=== PATIENT | female | born 1965 | race Caucasian/White ===

== ENCOUNTER 2016-11-10 11:11 | Day surgery (SDC) | payer OTHER ==
[~2016-11-10] VITALS: Ht 160 cm; Wt 56.0 kg
[~2016-11-10 11:11] MED LIST: 0.9% Sodium Chloride 1,000 ML IV SCH; DOXY25TA46 PO; MULT-666 PO; PANT40TA3 PO; PARO10TA2 PO; PRX40T PO; Sodium Chloride LOK Flush 10 mL Syringe IV PRN; TRAZ-118 PO; fentaNYL-PF 50 mCg/mL 2 mL Inj IVPUSH PRN
[2016-11-10 11:54] VITALS: BP 99/54; PULSE 74; RESP 16; O2SAT 99
[2016-11-10] MEDS ORDERED: ACET-171 PO (11:57)
--- NOTE | 2016-11-10 12:55 | PCM.ENDEGD ---
EGD Date of Service: Nov 10, 2016 Physician Ronald Clifford MD Pre Procedure Diagnosis: Abdominal pain Post Procedure Dx & Findings: Gastritis Procedure Esophagogastroduodenoscopy PROCEDURE IN DETAIL: After proper sedation, Olympus video endoscope was inserted into patient's mouth and esophagus was successfully intubated. Scope introduced esophagus. Esophagus showed normal shiny whitish mucosa consistent with squamous cell component. Z line was intact at 36 cm from the incisors. Scope further advanced to the stomach. Stomach showed normal shiny mucosa with normal appearing rugae folds without any ulcer mass erosion. Cardia fundus body antrum pylorus were all visualized. However in the antrum, there are several redness irritation consistent with gastritis as well as superficial erosions. Biopsies obtained. Retroflexion was done. Stomach was easily inflated and deflatable using air. Scope further events to the distal duodenum. Duodenum revealed normal villous structures with normal appearing folds without any mass ulcer erosion. Biopsy 5 obtained randomly in the duodenum for celiac disease Impression Gastritis with erosions Recommendation Continue PPI Avoid NSAIDs Presedation Assessment Risks and Benefits Informed consent was obtained from the patient after all risks and benefits including but not limited to drug reaction, infection, pain, bleeding, perforation, as well as alternatives were discussed. Patient monitoring Continuous pulse oximetry, cardiac monitoring, blood pressure monitoring, IV access, and oxygen at 2L per nasal cannula. Periprocedural Fentanyl: Fentanyl 75mcg Incrementally Midazolam: Midazolam 5mg Incrementally Complications There were no periprocedural complications identified. Post Procedure Plan Post Procedure Recommendations 1. Restrict activities today. 2. Resume normal activities in the morning. 3. Resume medications. 4. GERD behavioral modification: - Avoid fatty, acidic, spicy, large meals - Do not lie down after meals - Do not eat or drink anything for at least 2 1/2 hours before going to bed at night - Discontinue tobacco and alcohol - Decrease or avoid caffeine - Avoid chocolate and mints - Decrease weight - Avoid aspirin and non steroidal anti-inflammatory agents (NSAID) such as Aleve, Advil, Mobic, Naproxen, Ibuprofen, etc 5. Add proton pump inhibitor. Take 30 minutes before 1st meal of the day. 6. Patient informed of normal post procedure side effects as bloating, drowsiness, blood streaking in the stool 7. If gastric biopsy reveal H.pylori, continue with appropriate treatment 8. If small bowel biopsy reveals celiac, continue with appropriate treatment 9. Please don't hesitate to call me with any questions Ronald Clifford MD Nov 10, 2016 12:55
[2016-11-10 13:00] VITALS: BP 97/60; PULSE 56; RESP 12; O2SAT 96
[2016-11-10 13:12] VITALS: BP 100/62; PULSE 64; RESP 12; O2SAT 98
[2016-11-10 13:14] VITALS: BP 97/62; PULSE 67; RESP 12; O2SAT 98
--- NOTE | 2016-11-14 14:30 | PATH ---
SURGICAL PATHOLOGY Attending Physician:Ronald Clifford M.D. CASE STATUS: Signed Out PATIENT NAME: JOAQUIN HIGGINBOTHAM PID: [id number] : 1965 DATE COLLECTED:11/10/2016 19:49 SPECIMEN: 1: Gastric, Biopsy 2: Duodenum, Biopsy CLINICAL HISTORY: 1). GASTRIC EROSION BIOPSY 2). DUODENUM BIOPSY FINAL DIAGNOSIS: 1.GASTRIC EROSION, BIOPSY: MILD EROSIVE CHRONIC ACTIVE GASTRITIS. Negative for Helicobacter organisms. Negative for intestinal metaplasia. No evidence of dysplasia or malignancy. 2.DUODENUM, BIOPSY: MILD BLUNTING OF THE VILLOUS ARCHITECTURE, ASSOCIATED WITH PATCHY LYMPHOCYTOSIS IN THE SUPERFICIAL EPITHELIUM (PLEASE SEE COMMENT). No evidence of dysplasia or malignancy. ICD10 code K29.70 NOTE: The findings raise the possibility of celiac disease. Additional testing and clinical correlation are suggested for a definitive diagnosis. GROSS DESCRIPTION: The specimen is received in two formalin filled containers labeled with the patient's name. 1). The specimen is sublabeled "gastric erosion" and consists of 4 portions of tissue which aggregate to 0.3 x 0.3 x 0.2 CM. The specimen is entirely submitted in cassette 1A. 2). The specimen is sublabeled "duodenum" and consists of 4 portions of tissue which aggregate to 0.3 x 0.3 x 0.3 CM. The specimen is entirely submitted in cassette 2A. 11/10/2016 [facility] MICRO DESCRIPTION: A. The lamina propria of the gastric antrum is expanded by small numbers of acute and chronic inflammatory cells. Additionally, a mucosal erosion is identified. A Genta stain for Helicobacter organisms is done because of the acute inflammation is negative. This test was developed and its performance characteristics determined by [facility]. It has not been cleared or approved by the U. S. Food and Drug Administration. The FDA has determined that such clearance or approval is not necessary. This test is used for clinical purposes. It should not be regarded as investigational or for research. ICD-9 CODES: CPT CODES: 1: 96827, 56516 2: 70398 Electronically Signed Out Abbe Hopper MD [facility] Pathology [facility] [address], [place] [address] Technical component performed at [facility], [facility] [address], [place], [address]
[2017-01-12] MEDS ORDERED: MULT-1018 PO (14:56)
== END 2016-11-10 23:59 | disposition home or self-care (01) ==
LOC: END 11:11
PROVIDERS: ATTEND Internal Medicine
DX: K29.50 Unspecified chronic gastritis without bleeding (principal); R10.11 Right upper quadrant pain; R11.0 Nausea; K21.9 Gastro-esophageal reflux disease without esophagitis; K80.20 Calculus of gallbladder without cholecystitis without obstruction; K22.2 Esophageal obstruction; K31.9 Disease of stomach and duodenum, unspecified; F41.9 Anxiety disorder, unspecified; F32.9 Major depressive disorder, single episode, unspecified; K76.0 Fatty (change of) liver, not elsewhere classified; K27.9 Peptic ulcer, site unspecified, unspecified as acute or chronic, without hemorrhage or perforation; K44.9 Diaphragmatic hernia without obstruction or gangrene; Q76.49 Other congenital malformations of spine, not associated with scoliosis
CPT/HCPCS: 43239; 99152; J7030

== ENCOUNTER 2017-01-17 10:35 | Day surgery (SDC) | payer OTHER ==
[2017-01-17] VITALS (13 sets, daily range): BP systolic 90–112; BP diastolic 48–67; PULSE 54–82; RESP 14–23; O2SAT 93–100
[~2017-01-17] VITALS: Ht 160 cm; Wt 59.1 kg
[~2017-01-17 10:35] MED LIST changes: -0.9% Sodium Chloride 1,000 ML IV SCH; +CeFAZolin 2 Gm/50 mL D5W IV Premix IV ONE; -DOXY25TA46 PO; +Lactated Ringer's 1,000 ML IV SCH; +MULT-1018 PO; -MULT-666 PO; -PRX40T PO; -Sodium Chloride LOK Flush 10 mL Syringe IV PRN; -fentaNYL-PF 50 mCg/mL 2 mL Inj IVPUSH PRN
[2017-01-17] MEDS ORDERED: fentaNYL-PF 50 mCg/mL 2 mL Inj ONE (10:36)
[2017-01-17] MEDS ORDERED: Neostigmine 1 mg/mL 10 mL Inj ONE (10:36)
[2017-01-17] MEDS ORDERED: Dexamethasone 4 mg/mL Inj ONE (10:36)
[2017-01-17] MEDS ORDERED: Phenylephrine/NS 100 mCg/mL 10 mL Syringe IVPUSH ONE (10:36)
[2017-01-17] MEDS ORDERED: Glycopyrrolate 0.2 MG/ML 1mL Inj ONE (10:36)
[2017-01-17] MEDS ORDERED: Propofol 10 mg/mL 20 mL Inj ONE (10:36)
[2017-01-17] MEDS ORDERED: Ondansetron 2 mg/mL 2 mL Inj ONE (10:36)
[2017-01-17] MEDS ORDERED: CeFAZolin 2 Gm/50 mL D5W Duplex Bag IV ONE (11:05)
[2017-01-17] MEDS ORDERED: Lactated Ringer's 1,000 ML IV ONE ×2 (12:34→14:00)
[2017-01-17] MEDS ORDERED: Lactated Ringer's 1,000 ML IV SCH (13:00)
[2017-01-17] MEDS ORDERED: Ondansetron 2 mg/mL 2 mL Inj IVPUSH PRN (13:00)
[2017-01-17] MEDS ORDERED: EPHEDrine Sulfate 50 mg/mL Inj IVPUSH PRN (13:00)
[2017-01-17] MEDS ORDERED: Lactated Ringer's 500 ML IV PRN (13:00)
[2017-01-17] MEDS ORDERED: HYDROmorphone 1 mg/mL Inj IVPUSH PRN (13:00)
[2017-01-17] MEDS ORDERED: MetoCLOpramide 5 mg/mL 2 mL Inj IVPUSH PRN (13:00)
[2017-01-17] MEDS ORDERED: fentaNYL-PF 50 mCg/mL 2 mL Inj IVPUSH PRN (13:00)
[2017-01-17] MEDS ORDERED: Atropine 0.4 mg/mL Inj IVPUSH PRN (13:00)
[2017-01-17] MEDS ORDERED: Labetalol 5 mg/mL 4 mL Inj IV PRN (13:00)
[2017-01-17] MEDS ORDERED: Phenylephrine 10,000 mCg/mL Inj IVPUSH PRN (13:00)
[2017-01-17] MEDS ORDERED: Bupivacaine 0.5%/EPI 50 mL Inj INJ ONE (13:02)
[2017-01-17] MEDS ORDERED: oxyCODONE-Acetamin 5-325 mg Tablet PO PRN (14:25)
--- NOTE | 2017-01-17 14:27 | PCM.SURGOP ---
Surgical Operative Report Date of Service: Jan 17, 2017 Pre Operative Diagnosis Biliary colic Post Operative Diagnosis Chronic cholecystitis Procedure: Laparoscopic cholecystectomy Surgeon and Doctor Osteopathic: Surgeon: Ivonne Sales MD Assistants: Dinesh Cardenas PA-C; Halle Fallon MS4 A ophthalmic surgical assistant was required for retraction and driving the camera. Indication for Procedure This is a 51-year-old woman who presented with postprandial nausea associated with right upper quadrant abdominal pain and underwent evaluation including upper endoscopy which showed mild gastritis, and abdominal ultrasound which revealed cholelithiasis. She was referred to my office by the gastroenterology department, and was booked for laparoscopic cholecystectomy as an outpatient. Findings: 1. Moderate inflammation of the gallbladder consistent with chronic cholecystitis. 2. Intrahepatic gallbladder. Procedure Details The patient was brought to the operating room and placed in supine position. General endotracheal anesthesia was smoothly induced. Antibiotics were infused. A warming blanket and SCDs were placed. A foot board was placed. The operative field was prepped and draped in sterile fashion. A pause was performed to confirm the correct patient, procedure, site, and side. A transverse 10 mm incision was made just below the umbilicus. The abdomen was entered under direct vision using a Gavin port. Three additional 5 mm ports were placed in the epigastrium and right upper quadrant. The gallbladder was identified and lifted cephalad. Dissection then proceeded to identify the cystic duct, cystic artery, and to expose the bottom one third of the cystic plate. The cystic artery was tiny and was divided close to the gallbladder with electrocautery. Once there was a single structure entering the gallbladder coming off of the infundibulum, consistent with the cystic duct, it was clipped on the gallbladder and patient side and divided with scissors. The gallbladder was then removed from its bed on the liver with electrocautery. Notably, it was at an intrahepatic location which made dissection somewhat more difficult than usual. Prior to completely removing the gallbladder, a final look was taken at the stump of the cystic artery and cystic duct, and there was no bleeding or bile leak. The gallbladder was then fully removed from the liver and placed in an EndoCatch bag and removed. The three 5 mm ports were removed under direct vision, the 10 mm mid abdominal port was removed, and a [id number] 0 PDS was used to close the fascia. There was no fascial defect at the end of the case. 0.5% Marcaine with epinephrine was infused at all port sites for postoperative analgesia. The skin was closed with subcuticular 4-0 Monocryl. Sterile dressings were placed. The patient was awakened from general anesthesia and taken to the postoperative care unit in good condition. Complications There were no periprocedural complications identified. Surgical Specimen Removed: Yes Specimen sent to Pathology: Yes Surgical Specimen description: Gallbladder Anesthetic Plan: GA Grafts, Implants: None Output, Estimated Blood Loss: 10 (ml) Blood Administration during omalley: No Ivonne Sales MD Jan 17, 2017 14:27
--- NOTE | 2017-01-17 14:59 | PCM.HPANE ---
Patient Data Surgeon Admitting Provider: Attending Provider:Ivonne Sales MD Primary Care Physician:Jessi Bullard PA-C Other Provider:Kim Callowayingham Anesthesia Reason for Visit Biliary Colic Ht/WT & BMI Height (Feet): 5 Height (Inches): 3.00 Weight (Kilograms): 59.100 Body Mass Index 23.00 Allergies Coded Allergies: No Known Allergies (Unverified , 01/12/17) Past Anesthesia History Anesthesia History: Denies:: Abnormal Airway, Anesthesia Reactions, Difficult Intubation, Fam Anesthesia Reaction, Fam Malignant Hypertherm, Malignant Hyperthermia Diabetes History Hx Diabetes?: No MRSA MRSA: No Medications Hypertension Medication: No Home Meds Incl Beta Antonio: No Reported Medications Multivitamin (Multi Vitamin Daily)1 Each Tablet1 Each PO DAILY 30 Days Ref 0 01/12/17 Trazodone 100 Mg Equihu380 Mg PO HS Ref 0 11/09/16 Paroxetine 10 Mg Qjitvk13 Mg PO DAILY 30 Days Ref 0 11/09/[address] 40 Mg Tablet.dr40 Mg PO DAILY Ref 0 11/09/16 Discontinued Reported Medications Acetaminophen 500 Mg [id number] Mg PO TID PRN For Pain 11/10/16 Paroxetine-Expunged Drug, Do Not Renew! (Paxil-Expunged Drug, Do Not Renew!)40 Mg Weehcr22 Mg PO DAILY 08/10/11 History History of ENT Problems?: Yes HEENT History: Denies:: Abnormal Airway Cataracts Difficult Intubation Dysphagia Glaucoma Hearing Problem Sinus Problem TMJ Denture Type: None Teeth Condition: Within Normal Limits Other HEENT Pertinent History: S/P ORAL SURGERY Hx of Heart Problems?: No Cardiovascular History: Denies:: AICD Abdominal Aortic Aneurism Atrial Fibrillation Cardiac Surgery Chest Pain Congestive Heart Failure Coronary Artery Disease Edema Heart Murmur Hypertension Irregular Heartbeat Pacemaker Peripheral Vascular Rheumatic Fever Thrombophlebitis Valvular Heart Disease Hx of Respiratory Problem?: No Respiratory History: Denies:: Asthma COPD Chest Surgery Cough Dyspnea Emphysema Hemoptysis Oxygen Administration Pneumonia Pulmonary Embolism Tuberculosis Use of C-PAP Machine Use of Inhalers / NEBS Hx Neurologic Problems?: Yes Neurological History: Positive for:: Headaches Seizures (@ 18 MONTHS-NO RECURRENCE) Denies:: CVA Dementia Other Neurological Pertinent: C/OF INSOMNIA Hx of GI Problems?: Yes Other GI Pertinent History: S/P HERNIA (UMBILICAL X1,VENTRAL X2) RPR=CURRENT PROBLEM Hx of Problems?: No Female Hx: Denies:: Currently (TUBAL) Skin History: Positive for:: History Skin Disorders? 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 Category 1B: Patient has history of documented sleep apnea, and HAS received any narcotic , sedative or anesthesia administration during this stay Category 2: Patient has SUSPECTED Obstructive Sleep Apnea, and HAS received any narcotic , sedative or anesthesia administration during this stay. Category 3: Patient has SUSPECTED Obstructive Sleep Apnea and HAS NOT received narcotic, sedative or anesthesia administration during this stay. Category 4: Outpatient in Procedural Areas with known sleep apnea or who screen positive for High Risk via the STOP/BANG questionnaire. Exam Exam Vital Signs Vital Signs Date Time Temp Pulse Resp B/P Pulse Ox O2 Delivery O2 Flow Rate FiO2 01/17/17 11:04 36.6 54 16 112/67 100 Room Air General Appearance: Alert, Oriented X3, Cooperative, No Acute Distress HEENT/AIRWAY: MP 2 Lungs: Clear to Auscultation, Normal Air Movement Heart: Exam Unremarkable, Regular Rate/Rhythm, No Murmurs/Rubs/Gallops Meds/Labs/Diagnostics Admission Meds Current Medications Gabapentin (Neurontin) 600 mg PREOP ONCE PO Last administered on 01/17/17 11: 17; Start 01/17/17 at 06:00; Stop 01/17/17 at 06:01; Status DC Celecoxib (CeleBREX) 200 mg PREOP ONCE PO Last administered on 01/17/17 11:17 ; Start 01/17/17 at 06:00; Stop 01/17/17 at 06:01; Status DC Scopolamine (Transderm-Scop Patch) 1.5 mg ONCE ONCE TOPICAL Last administered on 01/17/17 11:17; Start 01/17/17 at 05:00; Stop 01/17/17 at 05:01; Status DC Acetaminophen (Tylenol) 650 mg PREOP ONCE PO Last administered on 01/17/17 11 :18; Start 01/17/17 at 06:00; Stop 01/17/17 at 06:01; Status DC Plan Impression Patient chart reviewed, patient interviewed and anesthestic plan with risks, benefits, and alternatives discussed, and informed consent obtained. NPO per Anesth. Guidelines: Yes ASA Physical Status: ASA2 Mod Systemic Disease Anesthetic Plan: GA Bene/Risks/Altern/Consents: Yes HP Complete Prior to Induction: Yes John Toro MD Jan 17, 2017 11:58
--- NOTE | 2017-01-17 15:00 | PCM.ANEP1 ---
Post Anesthesia PACU Phase 1 Assessment Vital Signs Vital Signs Date Time Temp Pulse Resp B/P Pulse Ox O2 Delivery O2 Flow Rate FiO2 01/17/17 14:52 74 15 95/52 93 Room Air 01/17/17 14:39 68 18 97/52 95 Room Air 01/17/17 14:37 71 18 103/53 97 Room Air 01/17/17 14:31 76 18 101/57 100 Simple Mask 10 01/17/17 14:21 69 22 108/60 100 Simple Mask 10 01/17/17 14:16 73 23 100/49 100 Simple Mask 10 01/17/17 14:10 75 19 99/48 100 Simple Mask 10 01/17/17 14:08 76 19 100/61 100 Simple Mask 10 01/17/17 11:04 36.6 54 16 112/67 100 Room Air Anesthetic Administered: GA Level of Alertness: Awake, talking MUNGUIA's with Equal Strength: Yes Pain: No Nausea or Vomiting: No CV Function & Hydration Stable: Yes Airway Device: Endotrachial Tube Oxygen Delivery: Simple Mask Lungs: Clear to Auscultation, Normal Air Movement PACU Phase 2 Assessment Complications: No Follow up Care: N/A Patient Instructions Provided: N/A John Toro MD Jan 17, 2017 15:00
--- NOTE | 2017-01-19 12:45 | PATH ---
SURGICAL PATHOLOGY Attending Physician:Ivonne Sales MD CASE STATUS: Signed Out PATIENT NAME: JOAQUIN HIGGINBOTHAM PID: [id number] : 1965 DATE COLLECTED:01/17/2017 23:39 SPECIMEN: Gallbladder CLINICAL HISTORY: BILIARY COLIC 1). GALLBLADDER FINAL DIAGNOSIS: 1.GALLBLADDER: CHOLELITHIASIS WITH ASSOCIATED MILD CHRONIC CHOLECYSTITIS. ICD10 K80.66 GROSS DESCRIPTION: The specimen is received in one formalin filled container labeled with the patient's name, sublabeled "gallbladder" and consists of an 8.0 x 2.0 x 2.0 CM gallbladder. The serosa is smooth. The wall is 0.1-0.3 CM in thickness. The mucosa is a dark green in color. The lumen contains a dark green mucoid material and 30+ yellow soriano gallstones calculi which range in size from 0.1-0.5 CM in greatest dimension. 5 customer relations representative sections are submitted in one cassette. 01/18/2017 [facility] MICRO DESCRIPTION: See diagnosis. ICD-9 CODES: CPT CODES: 1: 46056 Electronically Signed Out Tommy Centeno MD [facility] Pathology [facility] [address], [place] [address] Technical component performed at [facility], [facility] [address], [place], [address]
== END 2017-01-17 23:59 | disposition home or self-care (01) ==
LOC: SAS 10:35
PROVIDERS: ATTEND Surgery
DX: K80.10 Calculus of gallbladder with chronic cholecystitis without obstruction (principal); K21.9 Gastro-esophageal reflux disease without esophagitis; K29.70 Gastritis, unspecified, without bleeding; G43.909 Migraine, unspecified, not intractable, without status migrainosus; G47.00 Insomnia, unspecified; K27.9 Peptic ulcer, site unspecified, unspecified as acute or chronic, without hemorrhage or perforation; F32.9 Major depressive disorder, single episode, unspecified; F41.9 Anxiety disorder, unspecified
CPT/HCPCS: 47562; J0690; J1100; J2175; J2250; J2370; J2405; J2710; J3010; J7120

== ENCOUNTER 2017-02-15 05:52 | Day surgery (SDC) | payer OTHER ==
[~2017-02-15] VITALS: Ht 160 cm; Wt 58.3 kg
[2017-02-15] VITALS (12 sets, daily range): BP systolic 105–136; BP diastolic 53–72; PULSE 66–105; RESP 11–20; O2SAT 93–100
[~2017-02-15 05:52] MED LIST changes: -CeFAZolin 2 Gm/50 mL D5W IV Premix IV ONE; -Lactated Ringer's 1,000 ML IV SCH; +ONDA4TAB6 PO
[2017-02-15] MEDS ORDERED: Ondansetron 2 mg/mL 2 mL Inj ONE (05:53)
[2017-02-15] MEDS ORDERED: fentaNYL-PF 50 mCg/mL 2 mL Inj ONE (05:53)
[2017-02-15] MEDS ORDERED: EPHEDrine/NS 5 mg/mL 5 mL Syringe ONE (05:53)
[2017-02-15] MEDS ORDERED: Ketamine 10 mg/mL 20 mL Inj ONE (05:53)
[2017-02-15] MEDS ORDERED: Propofol 10,000 mCg/mL 20 mL Inj ONE (05:53)
[2017-02-15] MEDS ORDERED: Dexamethasone 4 mg/mL Inj ONE (05:53)
[2017-02-15] MEDS ORDERED: CeFAZolin Inj 2 GM in IV Premix 1 EACH IV ONE (06:00)
[2017-02-15] MEDS: Lactated Ringer's 1,000 ML IV SCH ×2 (06:01→07:24)
[2017-02-15] MEDS ORDERED: Lactated Ringer's 1,000 ML IV SCH (07:22)
[2017-02-15] MEDS ORDERED: Lactated Ringer's 500 ML IV PRN (07:22)
--- NOTE | 2017-02-15 07:22 | PCM.HPANE ---
Patient Data Surgeon Admitting Provider: Attending Provider:Ivonne Sales MD Primary Care Physician:Jessi Bullard PA-C Other Provider:Darian Calloway Anesthesia Reason for Visit Epigastric Hernia Ht/WT & BMI Height (Feet): 5 Height (Inches): 3 Weight (Kilograms): 58.3 Body Mass Index 22.00 Allergies Coded Allergies: No Known Allergies (Unverified , 01/12/17) Past Anesthesia History Anesthesia History: Denies:: Abnormal Airway, Anesthesia Reactions, Difficult Intubation, Fam Anesthesia Reaction, Fam Malignant Hypertherm, Malignant Hyperthermia Diabetes History Hx Diabetes?: No MRSA MRSA: No Medications Hypertension Medication: No Home Meds Incl Beta Antonio: No Reported Medications Trazodone 100 Mg [id number] Mg PO HS Ref 0 11/09/16 Paroxetine 10 Mg Euznct80 Mg PO DAILY 30 Days Ref 0 11/09/[address] 40 Mg Tablet.dr40 Mg PO DAILY Ref 0 11/09/16 Discontinued Reported Medications Ondansetron (Zofran)4 Mg Tablet4 Mg PO Q4H PRN For Nausea 02/08/17 Multivitamin (Multi Vitamin Daily)1 Each Tablet1 Each PO DAILY 30 Days Ref 0 01/12/17 History History of ENT Problems?: No HEENT History: Denies:: Abnormal Airway Cataracts Difficult Intubation Dysphagia Glaucoma Hearing Problem Sinus Problem TMJ Denture Type: None Teeth Condition: Within Normal Limits Hx of Heart Problems?: No Cardiovascular History: Denies:: AICD Abdominal Aortic Aneurism Atrial Fibrillation Cardiac Surgery Chest Pain Congestive Heart Failure Coronary Artery Disease Edema Heart Murmur Hypertension Irregular Heartbeat Pacemaker Peripheral Vascular Rheumatic Fever Thrombophlebitis Valvular Heart Disease Hx of Respiratory Problem?: No Respiratory History: Denies:: Asthma COPD Chest Surgery Cough Dyspnea Emphysema Hemoptysis Oxygen Administration Pneumonia Pulmonary Embolism Tuberculosis Use of C-PAP Machine Hx Neurologic Problems?: Yes Neurological History: Positive for:: Seizures (@ 18 MONTHS-NO RECURRENCE) Denies:: Alzheimer's Disease CVA Dementia Headaches Multiple Sclerosis Parkinson's Disease TIA Hx of GI Problems?: Yes Hx of Problems?: No Female Hx: Denies:: Currently Endometriosis Pelvic Inflammatory Problems with Breasts? Skin History: Positive for:: History Skin Disorders? (HX DERMATITIS (ECZEMA)) Denies:: Pressure Ulcers Hx Musculoskeletal Problems?: No Musculoskeletal History: Denies:: Joint Replacement Hx of Psycho/Social Problems?: Yes Psycho Social History: Positive for:: Anxiety Hx Depression Denies:: Bipolar Disorder Hx Surgeries?: Yes (C section, D&C, tubal, hernia repairs, oral surgery) Hx Any Other Health Problems?: Yes Other History: Denies:: Cancer Endocrine Disease Hospitalization Thyroid Disease History Blood Transfusions: Positive for:: Accept Blood Products? 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) Smoking Status: Never Smoker Have You Smoked inLast 12 mo: No Stop/Bang Treated for Sleep Apnea?: No Do You Have a CPAP Machine?: No S-Snoring: Do You Snore Loudly: No T-Tired: feel tired, fatigued: No O-Obsered: Observed not breath: No P-Blood Pressure: treated: No B- Body Mass Index > 35 kg/m2: No A- Age over 50: Yes N- Neck Large Circumference: No G- Gender Male: No LÓPEZ Total Score: 1 LÓPEZ Risk Assessment: Low Risk, <3 Yes Risk Assessment Category Category 1A: Patient has history of documented sleep apnea, and HAS NOT received any narcotic, sedative or anesthesia administration during this stay. Category 1B: Patient has history of documented sleep apnea, and HAS received any narcotic , sedative or anesthesia administration during this stay Category 2: Patient has SUSPECTED Obstructive Sleep Apnea, and HAS received any narcotic , sedative or anesthesia administration during this stay. Category 3: Patient has SUSPECTED Obstructive Sleep Apnea and HAS NOT received narcotic, sedative or anesthesia administration during this stay. Category 4: Outpatient in Procedural Areas with known sleep apnea or who screen positive for High Risk via the STOP/BANG questionnaire. Exam Exam Vital Signs Vital Signs Date Time Temp Pulse Resp B/P Pulse Ox O2 Delivery O2 Flow Rate FiO2 02/15/17 06:12 36.1 66 20 105/65 99 Room Air General Appearance: Alert, Oriented X3, Cooperative, No Acute Distress HEENT/AIRWAY: MP 2 Lungs: Clear to Auscultation, Normal Air Movement Heart: Exam Unremarkable, Regular Rate/Rhythm, No Murmurs/Rubs/Gallops Meds/Labs/Diagnostics Admission Meds Current Medications Lactated Ringer's (Lr) 1,000 ml @ 120 mls/hr Q8H20M IV Last administered on 7/ 20/17at 06:01; Start 02/15/17 at 05:00; Stop 02/15/17 at 13:19 Plan Impression Patient chart reviewed, patient interviewed and anesthestic plan with risks, benefits, and alternatives discussed, and informed consent obtained. NPO per Anesth. Guidelines: Yes ASA Physical Status: ASA1 Normal Healthy Anesthetic Plan: GA Bene/Risks/Altern/Consents: Yes HP Complete Prior to Induction: Yes Deep Barraza MD Feb 15, 2017 07:22
[2017-02-15] MEDS ORDERED: fentaNYL-PF 50 mCg/mL 2 mL Inj IVPUSH PRN (07:25)
[2017-02-15] MEDS ORDERED: Ondansetron 2 mg/mL 2 mL Inj IVPUSH PRN (07:25)
[2017-02-15] MEDS ORDERED: MetoCLOpramide 5 mg/mL 2 mL Inj IVPUSH PRN (07:25)
[2017-02-15] MEDS ORDERED: Phenylephrine 10,000 mCg/mL Inj IVPUSH PRN (07:25)
[2017-02-15] MEDS ORDERED: EPHEDrine Sulfate 50 mg/mL Inj IVPUSH PRN (07:25)
[2017-02-15] MEDS ORDERED: Dexamethasone 4 mg/mL Inj IVPUSH PRN (07:25)
[2017-02-15] MEDS ORDERED: Bupivacaine-MPF 0.5% W/EPI 30 mL Inj INFILTRATE ONE (07:47)
[2017-02-15] MEDS ORDERED: Lactated Ringer's 1,000 ML IV ONE (08:32)
--- NOTE | 2017-02-15 08:51 | PCM.SURGOP ---
Surgical Operative Report Date of Service: Feb 15, 2017 Pre Operative Diagnosis Epigastric hernia Post Operative Diagnosis Diastasis rectus Procedure: Repair of diastasis rectus Surgeon and Truss Designer: Surgeon: Ivonne Sales MD Assistants: Antonio Woods MD R3; Kelly Keane MS3 Indication for Procedure This is a 51-year-old woman with a history of 3 hernia defects above the umbilicus repaired in a single operation, who presented with a painful reducible bulge at the midpoint between the umbilicus and the xiphoid process, which is associated with nausea, pain, and associated difficulty with oral intake. On examination, the bulge was reducible. The fascial defect was difficult to palpate but was thought to be very small. She was consented for epigastric hernia repair. Findings: The patient herself marked the location of the symptomatic bulge prior to surgery. A discrete defect in the fascia could not be identified at that location, but she had a very thin linea alba as well as a 1cm region 1 cm to the left of the midline that was thin and weak but without discrete defect. Because of these findings and due to the patient's symptoms, plication of the anterior rectus sheath was performed to reduce the symptomatic bulge in that location. Procedure Details The patient was brought to the operating room and placed in supine position. General anesthesia with an LMA was smoothly induced. A warming blanket and SCDs were placed. Antibiotics were infused. The operative field was prepped and draped in sterile fashion. A pause was performed to confirm the correct patient, procedure, site, and side. A 3 cm transverse incision was made overlying the painful bulge which had been marked by the patient before presenting to the hospital, and had been marked by both the patient and surgeon preoperatively. Subcutaneous tissue was dissected with cautery to expose the linea alba. A discrete defect was not found in the fascia, and therefore using retractors, the entire linea alba extending 3.5 cm below and 3.5 cm above the site of incision was carefully exposed. It was therefore determined that she had a symptomatic diastasis rectus. A plication was then performed using multiple interrupted 0 Nurolon stitches from the anterior rectus sheath to the right and left of the linea alba , 0.75 cm apart, extending from 3cm below the marked area of pain to 3 cm above it. There was a 1cm weak area of fascia 1cm to the left of midline at the level of the patient's symptomatology; the anterior rectus fascia was plicated at this site as well with a single interrupted stitch. The wound was then irrigated. Subcutaneous tissue was closed with 3-0 Vicryl stitches. The skin was closed with a running 4-0 Monocryl stitch. Marcaine 0.5% with epinephrine was infused in the skin for postoperative analgesia. A sterile dressing was placed. The patient was awakened from general anesthesia and taken to postoperative care unit in good condition. Complications There were no periprocedural complications identified. Surgical Specimen Removed: No Specimen sent to Pathology: No Anesthetic Plan: GA Grafts, Implants: None Output, Estimated Blood Loss: 2 (ml) Blood Administration during omalley: No Ivonne Sales MD Feb 15, 2017 08:51
--- NOTE | 2017-02-15 08:57 | PCM.DISURG ---
Surgical Discharge Instruction Date of Service Feb 15, 2017 Dates of Hospitalization Date of Hospital Admission Providers Admitting Physician: Primary Care Physician: Jessi Bullard PA-C Attending Physician: Ivonne Sales MD Diet Discharge Diet: No restrictions Activity Discharge Activity-General: Activity as pain allows, No lifting >15 pounds for 2 weeks, No driving while taking narcotic Dressing and Incisional Care Dressing Care: Allow Steri Stripes to fall off, Remove outer dressing after 24 hrs Hygiene: May shower after (24 hours), DO NOT soak incision under water, NO bathtub, hot tub or whirlpool Follow Up Plan Follow Up Plan Follow up in the general surgery clinic in 1-2 weeks. Call at any time with questions or concerns. Call your provider for: Fever, Chills, Increasing abdominal pain, Wound redness , Increasing wound pain, Discharge @ incision, pus discharge Jovany Woods MD Feb 15, 2017 08:57
[2017-02-15] MEDS: HYDROmorphone 1 mg/mL Inj IVPUSH PRN ×2 (09:23→09:31)
[2017-02-15] MEDS: oxyCODONE-Acetamin 5-325 mg Tablet PO PRN ×2 (10:45→13:20)
--- NOTE | 2017-02-15 13:59 | PCM.ANEP1 ---
Post Anesthesia PACU Phase 1 Assessment Vital Signs Vital Signs Date Time Temp Pulse Resp B/P Pulse Ox O2 Delivery O2 Flow Rate FiO2 02/15/17 10:45 88 12 108/66 93 Room Air 02/15/17 10:08 86 94 Room Air 02/15/17 10:00 104 14 113/66 95 Room Air 02/15/17 09:50 100 11 107/65 93 Room Air 02/15/17 09:45 37.1 100 13 114/64 93 Room Air 02/15/17 09:30 96 13 114/63 97 Room Air 02/15/17 09:15 37.7 90 14 114/58 96 Room Air 02/15/17 09:05 95 19 113/56 100 Nasal Cannula 2 02/15/17 09:00 99 17 120/53 99 Nasal Cannula 3 02/15/17 08:55 105 19 130/69 100 Nasal Cannula 3 02/15/17 08:50 36.4 136/72 02/15/17 06:12 36.1 66 20 105/65 99 Room Air Anesthetic Administered: GA Level of Alertness: Awake, talking MUNGUIA's with Equal Strength: Yes Pain: No Nausea or Vomiting: No CV Function & Hydration Stable: Yes Airway Device: Oralpharangeal Airway Oxygen Delivery: Simple Mask Lungs: Clear to Auscultation, Normal Air Movement Dermatome Level: Full Sensation PACU Phase 2 Assessment Complications: No Follow up Care: No Patient Instructions Provided: N/A ([id number]) Deep Barraza MD Feb 15, 2017 13:59
== END 2017-02-15 23:59 | disposition home or self-care (01) ==
LOC: SAS 05:52
PROVIDERS: ATTEND Surgery
DX: K43.9 Ventral hernia without obstruction or gangrene (principal); R56.9 Unspecified convulsions; F41.9 Anxiety disorder, unspecified; Z79.899 Other long term (current) drug therapy
CPT/HCPCS: 49560; J0690; J1100; J1170; J2175; J2250; J2405; J3010; J7120